=== PATIENT | female | born 1940 | race Caucasian/White ===

== ENCOUNTER 2017-09-22 01:15 | Emergency (ER) | payer OTHER ==
[~2017-09-22 01:15] MED LIST: ATORVASTATIN CA10 M1 PO; LO-DOSE ASPIRIN81 MG PO; MECLIZINE HCL25 MG PO; METOPROLOL SUCC25 M1 PO; PENICILLIN V P500 MG PO; PREDNICOT20 MG PO; SENNA CON/DOCUS1 TAB PO; SYNTHROID0.075 MG PO; SYNTHROID75 MCG PO
[2017-09-22 01:42] VITALS: BP 165/83
--- NOTE | 2017-09-22 01:57 | ED GI/GU/ABDOMINAL COMPLAINT ---
History of Present Illness General Chief Complaint: Abdominal Pain/Flank Pain Stated Complaint: PT C/O ABD PAIN - N/V/D Source: patient, family, old records Exam Limitations: no limitations Vital Signs & Intake/Output Vital Signs & Intake/Output Vital Signs Date Time Temp Pulse Resp B/P B/P Pulse O2 O2 Flow FiO2 Mean Ox Delivery Rate 09/22 0200 Room Air 09/22 0142 98.3 64 18 165/83 94 Room Air Allergies Coded Allergies: prednisone (DIZZY 09/06/17) Reconcile Medications Aspirin (Lo-Dose Aspirin EC) 81 MG TABLET.DR 1 TAB PO EOD SUPPLEMENT ( Reported) Atorvastatin Calcium 10 MG TABLET 0.5 TAB PO QPM CHOLESTEROL (Reported) Levothyroxine Sodium (Synthroid) 75 MCG TABLET 1 TAB PO DAILY AC THYROID ( Reported) Meclizine HCl 25 MG TABLET 1 TAB PO DAILY MENIERES (Reported) Metoprolol Succinate (Unknown Strength) TAB (Unknown Dose) PO QPM HEART/BP ( Reported) Triage Nurses Notes Reviewed? yes ? N Is pt currently ? No HPI: At approximately 5 PM patient began to experience intermittent squeezing sensation in her abdomen. The pain is diffuse throughout her abdomen. There is no radiation outside of her abdomen. There is no radiation to her back. The pain lasts a few seconds and then goes away entirely. Sometimes the pain is so bad that she gets nauseous and doubles over. There are no aggravating or mitigating factors. There's been no diarrhea. There is no shortness of breath or chest pain. At its worst the pain is 7 out of 10 and when the pain is gone it is 0 out of 10. Patient is just finishing a course of methylprednisolone that she has been taking for sore throat. Past History Travel History Traveled to [place] past 21 day No Medical History Any Pertinent Medical History? 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 No Review of Systems Review of Systems Constitutional: Reports: no symptoms. EENTM: Reports: no symptoms. Respiratory: Reports: no symptoms. Cardiovascular: Reports: no symptoms. GI: Reports: see HPI, abdominal pain. Genitourinary: Reports: no symptoms. Musculoskeletal: Reports: no symptoms. Skin: Reports: no symptoms. Neurological/Psychological: Reports: no symptoms. Hematologic/Endocrine: Reports: no symptoms. Immunologic/Allergic: Reports: no symptoms. All Other Systems: Reviewed and Negative Physical Exam Physical Exam General Appearance: well developed/nourished, alert, awake, anxious, mild distress Head: atraumatic, normal appearance Eyes: Bilateral: PERRL, EOMI. Ears, Nose, Throat, Mouth: hearing grossly normal, moist mucous membrane Neck: normal inspection, supple, full range of motion Respiratory: normal breath sounds, chest non-tender, no respiratory distress, lungs clear Cardiovascular: regular rate/rhythm, normal peripheral pulses Gastrointestinal: normal bowel sounds, soft, non-tender, no organomegaly Back: normal inspection, normal range of motion, NO CVA TENDERNSS Extremities: normal range of motion Neurologic/Psych: no motor/sensory deficits, awake, alert, oriented x 3, normal gait, normal mood/affect Skin: intact, normal color, warm/dry Core Measures ACS in differential dx? No Sepsis Present: No Sepsis Focused Exam Completed? No Progress Differential Diagnosis: AAA, AMI, biliary colic, colon cancer, cholecystitis, diverticulitis, gastritis, hepatitis, ischemic bowel, inflamm bowel dis, pancreatitis, SBO, UTI/pyelo Plan of Care: Orders Procedure Date/time Status Add-on Test (ER Only) 09/227 Active URINALYSIS 09/22 155 Complete TROPONIN LEVEL 09/22 155 Complete LIPASE 09/22 155 Complete COMPREHENSIVE METABOLIC PANEL 09/22 155 Complete CBC WITHOUT DIFFERENTIAL 09/22 155 Complete AMYLASE 09/22 155 Complete EKG 09/22 155 Active Laboratory Tests 09/22/17 0350: Urinalysis LIGHT H, Urine Color YEL, Urine Clarity HAZY H, Urine pH 6.0, Ur Specific [place] 1.010, Urine Protein NEG, Urine Ketones NEG, Urine Nitrite NEG, Urine Bilirubin NEG, Urine Urobilinogen 0.2, Ur Leukocyte Esterase MOD H, Ur Microscopic SEDIMENT EXAMINED, Urine WBC 3-5 H, Ur Epithelial Cells FEW, Urine Bacteria FEW H, Urine Hemoglobin NEG, Urine Glucose NEG 09/22/17 0250: Anion Gap 12, Estimated GFR > 60, BUN/Creatinine Ratio 25.7 H, Glucose 115 H, Calcium 9.7, Total Bilirubin 0.3, AST 21, ALT 23, Alkaline Phosphatase 89, Troponin I < 0.01, Total Protein 7.1, Albumin 4.3, Globulin 2.8, Albumin/ Globulin Ratio 1.5, Amylase 83, Lipase 137 09/22/17 0214: CBC w Diff NO MAN DIFF REQ, RBC 4.55, MCV 93.2, MCH 31.1 H, MCHC 33.4, RDW 13.1 , MPV 9.1, Gran % 76.1 H, Lymphocytes % 15.1 L, Monocytes % 8.0, Eosinophils % 0.1, Basophils % 0.7, Absolute Granulocytes 9.0 H, Absolute Lymphocytes 1.8, Absolute Monocytes 0.9 H, Absolute Eosinophils 0, Absolute Basophils 0.1 Diagnostic Imaging: Viewed by Me: CT Scan. Discussed w/RAD: CT Scan. Radiology Impression: PATIENT: ASHLEE SINGLETARY PRESENT AGE: 77 PATIENT ACCOUNT NO: [id number] : 41 LOCATION: [facility] ORDERING PHYSICIAN: Oskar Wetzel MD SERVICE DATE: 09/22/17 EXAM TYPE: CAT - CT ABD & PELVIS W IV CONTRAST EXAMINATION: CT ABDOMEN AND PELVIS WITH CONTRAST CLINICAL INFORMATION: Diffuse abdominal pain COMPARISON: None TECHNIQUE: Multidetector volumetric imaging was performed of the abdomen and pelvis following IV administration of 95 mL of Optiray 320 intravenous contrast. Sagittal and coronal reformatted images were obtained on the technologist's workstation. DLP: 249 mGy-cm FINDINGS: LUNG BASES: Right basilar subsegmental atelectasis. Coronary artery calcifications are present. LIVER, GALLBLADDER, AND BILIARY TREE: The liver is normal in size, shape, and attenuation. No focal hepatic lesion or biliary ductal dilatation is present. There is trace perihepatic ascites. Small amount of sludge layering in the gallbladder lumen. No gallbladder wall thickening or pericholecystic fluid. PANCREAS: Unremarkable. SPLEEN: Unremarkable. ADRENAL GLANDS: Unremarkable. KIDNEYS AND URETERS: The kidneys are normal in size, shape, and attenuation. No hydronephrosis, hydroureter, or calculi seen. No perinephric stranding. BLADDER: Unremarkable. GASTROINTESTINAL TRACT: The stomach is unremarkable. The proximal small bowel is unremarkable. There are fluid-filled loops of mildly prominent small bowel in the central abdomen and pelvis. There is fecalization of the distal ileum extending to the terminal ileum. No bowel wall thickening. No colonic wall thickening or inflammatory changes. Moderate colonic stool burden. Normal appendix. No free air. ABDOMINAL WALL: No significant hernia is appreciated. LYMPH NODES: Normal. VASCULAR: Unremarkable. PELVIC VISCERA: Unremarkable. OSSEOUS STRUCTURES: No acute or suspicious osseous abnormality. Mild degenerative changes of the spine. IMPRESSION: Mildly prominent fluid-filled mid to distal small bowel leading to an area of fecalization at the distal ileum. Decompression of the terminal ileum. No definite wall thickening seen. These findings are nonspecific but could be associated with slow transit or low-grade partially obstructive process. Moderate stool is seen throughout the colon. Trace ascites. DICTATED BY: Joes Zarco MD DATE/TIME DICTATED:09/22/17345 CLINICAL APPEALS SPECIALIST:HANNA DATE/TIME TRANSCRIBED:09/22/17345 CONFIDENTIAL, DO NOT COPY WITHOUT APPROPRIATE AUTHORIZATION. <Electronically signed in Other Vendor System> SIGNED BY: Carolee RAMIREZ,Jose 09/22/17 0353 Initial ED EKG: NSR, no ST T wave changes Prior EKG: unchanged Comments: Patient has not had any more episodes of the pain after taking the Levsin. Departure Departure Disposition: HOME OR SELF CARE Condition: Stable Clinical Impression Primary Impression: Lower abdominal pain, unspecified Referrals: Danielle RAMIREZ,Nito Mcdonnell (PCP/Family) Additional Instructions: RETURN IF SYMPTOMS WORSEN OR FOR ANY CONCERNS Departure Forms: Customer Survey General Discharge Information Prescriptions: Current Visit Scripts Hyoscyamine (Levsin) 1 TAB PO Q4 PRN ABDOMINAL PAIN #20 TAB
[2017-09-22 02:27] LABS: ABSOLUTE BASOPHIL COUNT 0.1 /CUMM (0.0-0.2); ABSOLUTE EOSINOPHIL COUNT 0 /CUMM (0.0-0.7); ABSOLUTE LYMPH COUNT 1.8 /CUMM (1.2-3.4); ABSOLUTE MONOCYTE COUNT 0.9 /CUMM (0.10-0.60); BASOPHIL % 0.7 % (0.0-2.0); EOSINOPHIL % 0.1 % (0-5); GRANULOCYTE % 76.1 % (42.2-75.2); HEMATOCRIT 42.4 % (37-47); MEAN CORPUSCULAR HGB 31.1 PG (27.0-31.0); MEAN CORPUSCULAR HGB CONC 33.4 G/DL (33.0-37.0); MEAN CORPUSCULAR VOLUME 93.2 FL (81.0-99.0); MEAN PLATELET VOLUME 9.1 FL (7.4-10.4); PLATELET COUNT 220 /CUMM (130-400); RBC DISTRIBUTION WIDTH 13.1 % (11.5-14.5); RED BLOOD CELL CT 4.55 /CUMM (4.20-5.40); WHITE BLOOD CELL COUNT 11.9 /CUMM (4.8-10.8)
--- NOTE | 2017-09-22 03:53 | CT SCAN REPORT ---
EXAMINATION: CT ABDOMEN AND PELVIS WITH CONTRAST CLINICAL INFORMATION: Diffuse abdominal pain COMPARISON: None TECHNIQUE: Multidetector volumetric imaging was performed of the abdomen and pelvis following IV administration of 95 mL of Optiray 320 intravenous contrast. Sagittal and coronal reformatted images were obtained on the technologist's workstation. DLP: 249 mGy-cm FINDINGS: LUNG BASES: Right basilar subsegmental atelectasis. Coronary artery calcifications are present. LIVER, GALLBLADDER, AND BILIARY TREE: The liver is normal in size, shape, and attenuation. No focal hepatic lesion or biliary ductal dilatation is present. There is trace perihepatic ascites. Small amount of sludge layering in the gallbladder lumen. No gallbladder wall thickening or pericholecystic fluid. PANCREAS: Unremarkable. SPLEEN: Unremarkable. ADRENAL GLANDS: Unremarkable. KIDNEYS AND URETERS: The kidneys are normal in size, shape, and attenuation. No hydronephrosis, hydroureter, or calculi seen. No perinephric stranding. BLADDER: Unremarkable. GASTROINTESTINAL TRACT: The stomach is unremarkable. The proximal small bowel is unremarkable. There are fluid-filled loops of mildly prominent small bowel in the central abdomen and pelvis. There is fecalization of the distal ileum extending to the terminal ileum. No bowel wall thickening. No colonic wall thickening or inflammatory changes. Moderate colonic stool burden. Normal appendix. No free air. ABDOMINAL WALL: No significant hernia is appreciated. LYMPH NODES: Normal. VASCULAR: Unremarkable. PELVIC VISCERA: Unremarkable. OSSEOUS STRUCTURES: No acute or suspicious osseous abnormality. Mild degenerative changes of the spine. IMPRESSION: Mildly prominent fluid-filled mid to distal small bowel leading to an area of fecalization at the distal ileum. Decompression of the terminal ileum. No definite wall thickening seen. These findings are nonspecific but could be associated with slow transit or low-grade partially obstructive process. Moderate stool is seen throughout the colon. Trace ascites.
[2017-09-22] MEDS ORDERED: LEVSIN0.125 M1 PO (04:20)
== END 2017-09-22 04:35 ==
LOC: ERH 01:15
PROVIDERS: Emergency Medicine
DX: R10.30 Lower abdominal pain, unspecified (principal)
CPT/HCPCS: 74177; 81001; 87086; 93005; 93010